=== PATIENT | male | born 1965 | race Caucasian/White ===

== ENCOUNTER 2022-03-10 12:03 | Emergency (ER) | payer OTHER, SELFPAY ==
--- NOTE | 2022-03-10 12:04 | ED.SKABFB ---
HPI - Skin/Abscess/Foreign Bdy General Chief complaint: Skin/Abscess/Foreign Body Stated complaint: Skin Sore Time Seen by Provider: 03/10/22 12:04 Source: patient and RN notes reviewed History of Present Illness HPI narrative: Patient is a 56-year-old male who presents the urgent care with complaints of a reddened area to the back of the neck. Patient states he noticed it when he woke up today and feels it is getting larger and more painful. Patient is unsure of any known insect bite or injury. No other acute complaints. No acute distress noted. Patient aware of the plan of care. Some parts of this dictation were generated by voice recognition software and may contain typographical and/or grammatical inaccuracies. Related Data Home Medications Medication Instructions Recorded Confirmed tramadol 50 mg tablet 50 mg PO Q6H PRN Muscle Pain 03/10/22 03/10/22 Allergies Allergy/AdvReac Type Severity Reaction Status Date / Time No Known Allergies Allergy Verified 03/10/22 12:14 Review of Systems Review of Systems: CONSTITUTIONAL: Denies fever, chills, or sweats. EYES: Denies visual changes, redness, or discharge. ENT: Denies rhinorrhea, congestion, sore throat, or otalgia. CARDIOVASCULAR: Denies chest pain, palpitations, or edema. RESPIRATORY: Denies cough or dyspnea. GASTROINTESTINAL: Denies abdominal pain, nausea, vomiting, or diarrhea. GENITOURINARY: Denies dysuria or hematuria. SKIN: Reports of a reddened irritated area to the back of the neck MUSCULOSKELETAL: Denies back pain, joint pain, or myalgia. NEUROLOGIC: Denies headache, numbness, or weakness. All other systems reviewed are negative, except as documented in HPI. PMFSH Comments At the time of my signature, I reviewed and agree with the nursing past medical, surgical, social, and family history. There is no relevant family history pertinent to the patient complaint. Exam Narrative: GENERAL: This is a well-nourished, well-developed patient, in no apparent distress. HEAD: normocephalic, atraumatic. EYES: PERRL. Sclera clear/white. Vision is grossly intact. EARS: External ears normal NOSE: External nose normal with no obvious nasal discharge, nares without redness, no rhinorrhea. THROAT: Mucous membranes moist NECK: Neck supple CARDIOVASCULAR: Regular rate and rhythm without murmurs, gallops, or rubs. RESPIRATORY: Clear to auscultation. Breath sounds equal bilaterally. No wheezes, rales, or rhonchi. SKIN: 2.5 cm x 1 cm area of erythema surrounding what appears to be a drained blister NEURO: awake, alert, and oriented to person, place and time. There were no obvious focal neurologic abnormalities. EXTREMITIES: No clubbing, cyanosis, or edema. Course Course Level of Care: Express Care Visit Vital Signs Vital signs: Vital Signs Temperature 97.5 F L 03/10/22 12:09 Pulse Rate 75 03/10/22 12:09 Respiratory Rate 16 03/10/22 12:09 Blood Pressure 135/69 03/10/22 12:09 Pulse Oximetry 98 03/10/22 12:09 Oxygen Delivery Room Air 03/10/22 12:09 Temperature 97.5 F L 03/10/22 12:09 Pulse Rate 75 03/10/22 12:09 Respiratory Rate 16 03/10/22 12:09 Blood Pressure 135/69 03/10/22 12:09 Pulse Oximetry 98 03/10/22 12:09 Oxygen Delivery Room Air 03/10/22 12:09 Reviewed MDM - Skin/Abscess/Foreign Bdy MDM Narrative Medical decision making narrative: Advised patient to keep the wound very clean with plain Dial soap and water. May use Neosporin and a bandage over the wound until completely approximated and healed. You are now up-to-date on your tetanus shot. Follow-up with your PCP within 2 to 5 days or for worsening symptoms or failure to improve. Differential Diagnosis Differential diagnosis: Likely abscess of skin or subcutaneous tissue, viral exanthem, dermatophytosis, herpes zoster, allergic reaction to drug and cellulitis Critical Care Time Critical Care Time Critical Care Time: No Discharge Plan Discharge Clinical I
[2022-03-10 12:09] VITALS: BP 135/69; PULSE 75; RESP 16; TEMP 36.4; O2SAT 98
== END 2022-03-10 12:23 | disposition home or self-care (01) ==
PROVIDERS: Emergency Provider Nurse Practitioner Family
DX: S10.92XA Blister (nonthermal) of unspecified part of neck, initial encounter (principal); X58.XXXA Exposure to other specified factors, initial encounter
CPT/HCPCS: 99213; G0463